=== PATIENT | male | born 1950 | race Caucasian/White ===

== ENCOUNTER 2018-01-21 03:33 | Inpatient (IN) | payer MEDICAID, OTHER ==
[~2018-01-21] VITALS: Ht 172.7 cm; Wt 85.7 kg
[2018-01-21 04:46] LABS: BASOPHILS % 1.1 % (0.0-2.0); EOSINOPHILS % 0.4 % (0.0-5.0); HEMOGLOBIN. 13.1 g/dL (14.0-18.0); LYMPHOCYTES % 9.2 % (20.0-50.0); MEAN CORPUSCULAR HEMOGLOBIN 27.7 pg (28.0-32.0); MEAN CORPUSCULAR VOLUME 84.2 fL (80.0-94.0); MEAN PLATELET VOLUME 8.7 fl (7.4-10.4); MONOCYTES % 4.6 % (2.0-8.0); NEUTROPHILS % 84.7 % (40.0-76.0); PLATELET 320 x1000/uL (130-400); RED BLOOD CELL COUNT 4.75 mill/uL (4.7-6.1); RED CELL DISTRIBUTION WIDTH 14.6 % (11.6-14.6)
[2018-01-21 04:49] LABS: PARTIAL THROMBOPLASTIN TIME 32.6 sec (23.4-31.0); PROTHROMBIN TIME 9.9 sec (9.1-11.1)
[2018-01-21 04:52] LABS: CHLORIDE 101 mEq/L (98-107)
[2018-01-21 04:59] LABS: BETA HYDROXYBUTYRATE 0.1 mMol/L (0.0-0.3)
[2018-01-21 05:00] LABS: CREATINE KINASE 252 IU/L (39-308)
[2018-01-21] MEDS ORDERED: LABETALOL HCL 20MG/4ML CARPUJECT IV ONE (05:30)
[2018-01-21] MEDS ORDERED: FUROSEMIDE 40MG/4ML VIAL IVP SCH (05:40)
[2018-01-21] MEDS ORDERED: ASPIRIN 325MG EC TABLET PO ONE (06:00)
[2018-01-21] MEDS ORDERED: VANCOMYCIN 1 G PREMIX 200 ML IV SCH ×2 (06:15→08:30)
[2018-01-21] MEDS ORDERED: PIPERACILLIN/TAZOBACTAM 3.375GM/50ML PREMIX IV ONE (06:15)
[2018-01-21] MEDS ORDERED: PIPERACILLIN/TAZ 3.375G PREMIX 50 ML IV SCH (06:16)
[2018-01-21] MEDS ORDERED: NA PHOS,M-B/NA PHOS,DI-BA ENEMA 118ML PR PRN (08:30)
[2018-01-21] MEDS ORDERED: ONDANSETRON HCL 4MG/2ML INJ IV PRN (08:30)
[2018-01-21] MEDS ORDERED: ZOLPIDEM TARTRATE 5MG TABLET PO PRN (08:30)
[2018-01-21] MEDS ORDERED: MAGNESIUM/ALUMINUM HYDROXIDE/SIMETHICONE 30ML UDC PO PRN (08:30)
[2018-01-21] MEDS ORDERED: DIPHENHYDRAMINE 50MG/ML VIAL IV PRN (08:30)
[2018-01-21] MEDS ORDERED: GUAIFENESIN 200MG/10ML SUGAR FREE UDC PO PRN (08:30)
[2018-01-21] MEDS ORDERED: LORAZEPAM 0.5MG TABLET PO PRN (08:30)
[2018-01-21] MEDS ORDERED: IPRATROPIUM/ALBUTEROL 0.5-3(2.5)MG/3ML NEB INH PRN (08:30)
[2018-01-21] MEDS ORDERED: DOCUSATE SODIUM 100MG CAPSULE PO PRN (08:30)
[2018-01-21] MEDS ORDERED: CLONIDINE 0.1MG TABLET PO PRN (08:30)
[2018-01-21] MEDS ORDERED: ACETAMINOPHEN 325MG TABLET PO PRN (08:30)
[2018-01-21] MEDS ORDERED: TRAMADOL 50MG TABLET PO PRN (08:30)
[2018-01-21] MEDS ORDERED: CLONIDINE 0.2MG TABLET PO PRN (08:45)
[2018-01-21] MEDS: MINOXIDIL 2.5MG TABLET PO SCH ×2 (09:00→20:28)
[2018-01-21] MEDS: METOPROLOL TARTRATE 25MG TABLET PO SCH ×2 (09:00→20:29)
[2018-01-21] MEDS: AMLODIPINE 10MG TABLET PO SCH (09:28)
[2018-01-21] MEDS: FUROSEMIDE 40MG/4ML VIAL IVP SCH ×2 (09:28→20:29)
[2018-01-21] MEDS ORDERED: DEXTROSE 50% WATER 50ML SYRINGE IV PRN (10:30)
[2018-01-21 11:30] VITALS: BP 137/78
[2018-01-21] MEDS ORDERED: ENOXAPARIN 40MG/0.4ML SYR SUBCUT SCH (11:30)
[2018-01-21 12:00] VITALS: BP 137/78
[2018-01-21] MEDS: ASPIRIN 325MG EC TABLET PO SCH (12:03)
[2018-01-21] MEDS: ASCORBIC ACID 500 MG TABLET PO SCH ×2 (12:03→20:29)
[2018-01-21] MEDS: FAMOTIDINE 20MG TABLET PO SCH (12:03)
[2018-01-21] MEDS: ZINC SULFATE 220 MG ( 50 ) CAPSULE PO SCH (12:04)
[2018-01-21] MEDS: BLOOD SUGAR DIAGNOSTIC STRIP TEST SCH ×3 (12:04→20:20)
[2018-01-21] MEDS: INSULIN LISPRO 100 UNITS/ML SUBCUT SCH ×3 (12:15→20:31)
[2018-01-21] MEDS ORDERED: INSULIN GLARGINE UD 100 UNITS/ML SYR SUBCUT SCH (13:00)
[2018-01-21] MEDS ORDERED: VANCOMYCIN 750 MG PREMIX 150 ML IV NR (13:30)
[2018-01-21] MEDS: HYDRALAZINE HCL 50MG TABLET PO SCH ×2 (14:51→22:33)
[2018-01-21 15:38] LABS: *AMPHETAMINES SCREEN URINE NEGATIVE (NEGATIVE); *BARBITURATES SCREEN URINE NEGATIVE (NEGATIVE); *BENZODIAZEPINES SCREEN URINE NEGATIVE (NEGATIVE); *COCAINE SCREEN URINE NEGATIVE (NEGATIVE)
[2018-01-21 15:39] LABS: CANNABINOID URINE SCREEN NEGATIVE (NEGATIVE); OPIATES URINE SCREEN NEGATIVE (NEGATIVE); PHENCYCLIDINE URINE SCREEN NEGATIVE (NEGATIVE)
[2018-01-21 15:43] LABS: METHADONE URINE SCREEN NEGATIVE (NEGATIVE)
[2018-01-21 16:00] VITALS: BP 140/66
[2018-01-21] MEDS: PIPERACILLIN/TAZ 2.25G PREMIX 50 ML IV SCH ×2 (16:23→20:27)
[2018-01-21 16:55] LABS: CREATINE KINASE MB FRACTION 8.4 ng/mL (0.5-3.6)
[2018-01-21 20:00] VITALS: BP 128/60
[2018-01-21] MEDS ORDERED: ATORVASTATIN CALCIUM 40MG TABLET PO SCH (21:00)
[2018-01-22] VITALS: BP 104/43
[2018-01-22 01:03] LABS: CREATINE KINASE MB FRACTION 8.6 ng/mL (0.5-3.6)
[2018-01-22] MEDS: PIPERACILLIN/TAZ 2.25G PREMIX 50 ML IV SCH ×2 (03:12→08:39)
[2018-01-22 04:00] VITALS: BP 144/55
[2018-01-22] MEDS: INSULIN LISPRO 100 UNITS/ML SUBCUT SCH ×2 (06:20→12:31)
[2018-01-22] MEDS: BLOOD SUGAR DIAGNOSTIC STRIP TEST SCH ×2 (06:20→11:18)
[2018-01-22] MEDS: HYDRALAZINE HCL 50MG TABLET PO SCH (06:25)
[2018-01-22 08:00] VITALS: BP 109/60
[2018-01-22] MEDS: ASPIRIN 325MG EC TABLET PO SCH (08:27)
[2018-01-22] MEDS: AMLODIPINE 10MG TABLET PO SCH (08:28)
[2018-01-22] MEDS: ASCORBIC ACID 500 MG TABLET PO SCH (08:28)
[2018-01-22] MEDS: ZINC SULFATE 220 MG ( 50 ) CAPSULE PO SCH (08:28)
[2018-01-22] MEDS: MINOXIDIL 2.5MG TABLET PO SCH (08:29)
[2018-01-22] MEDS: FAMOTIDINE 20MG TABLET PO SCH (08:29)
[2018-01-22] MEDS: METOPROLOL TARTRATE 25MG TABLET PO SCH (08:29)
[2018-01-22] MEDS: FUROSEMIDE 40MG/4ML VIAL IVP SCH (08:30)
[2018-01-22] MEDS ORDERED: ENOXAPARIN 30MG/0.3ML SYR SUBCUT SCH (09:00)
[2018-01-22] MEDS ORDERED: INSULIN GLARGINE UD 100 UNITS/ML SYR SUBCUT SCH (11:30)
[2018-01-22 12:00] VITALS: BP 119/46
[2018-01-22 13:13] VITALS: BP 119/50
== END 2018-01-22 14:00 | disposition home or self-care (01) | DRG 469 ==
LOC: ER 03:33 → EDBEDREQTM 05:29 → EDBEDREQ 05:29 → 8WST 05:36 → ENRESERV 07:20 → CANRESERV 07:20 → ENRESERV 07:36
PROVIDERS: ADMIT Internal Medicine; ATTEND Internal Medicine
DX: N17.0 Acute kidney failure with tubular necrosis (principal); J96.00 Acute respiratory failure, unspecified whether with hypoxia or hypercapnia; E43 Unspecified severe protein-calorie malnutrition; I50.33 Acute on chronic diastolic (congestive) heart failure; E11.65 Type 2 diabetes mellitus with hyperglycemia; E83.51 Hypocalcemia; I11.0 Hypertensive heart disease with heart failure; L97.909 Non-pressure chronic ulcer of unspecified part of unspecified lower leg with unspecified severity; Z68.28 Body mass index [BMI] 28.0-28.9, adult; Z59.0 Homelessness; Z79.899 Other long term (current) drug therapy
CPT/HCPCS: 36415; 71045; 76770; 80053; 80061; 80305; 82010; 82375; 82550; 82553; 82962; 83036; 83605; 83880; 84484; 85025; 85610; 85730; 87040; 87086; 93005; 93306; 93970; 96365; 96368; 96375; 99285; J1650; J1815; J1940; J2405; J2543; J3370; J3490; J7050

== ENCOUNTER 2018-04-19 01:17 | Inpatient (IN) | payer MEDICAID ==
[~2018-04-19] VITALS: Ht 175.3 cm; Wt 71.7 kg
[2018-04-19] VITALS (65 sets, daily range): BP systolic 60–169; BP diastolic 26–78
[2018-04-19] MEDS ORDERED: ONDANSETRON HCL 4MG/2ML INJ IV STA (01:27)
[2018-04-19] MEDS ORDERED: SODIUM CHLORIDE 0.9% 1,000 ML IV ONE ×2 (01:27→02:15)
[2018-04-19 02:04] LABS: HEMATOCRIT. 36.5 % (42.0-52.0); HEMOGLOBIN. 10.1 g/dL (14.0-18.0); MEAN CORPUSCULAR HEMOGLOBIN 26.8 pg (28.0-32.0); MEAN CORPUSCULAR VOLUME 96.4 fL (80.0-94.0); MEAN PLATELET VOLUME 8.1 fl (7.4-10.4); PLATELET 710 x1000/uL (130-400); RED BLOOD CELL COUNT 3.79 mill/uL (4.7-6.1); RED CELL DISTRIBUTION WIDTH 21.1 % (11.6-14.6)
[2018-04-19 02:08] LABS: CHLORIDE 93 mEq/L (98-107)
[2018-04-19] MEDS ORDERED: DEXTROSE 50% WATER 50ML SYRINGE IV SCH (02:15)
[2018-04-19] MEDS ORDERED: SODIUM POLYSTYRENE SULFONATE 15 G/60 ML BOT PO SCH (02:15)
[2018-04-19] MEDS ORDERED: INSULIN REGULAR (HUMULIN R) 300UNITS/3ML IV SCH (02:15)
[2018-04-19] MEDS ORDERED: ATROPINE SULFATE 1MG/10ML SYR IV ONE ×2 (02:15→02:30)
[2018-04-19] MEDS ORDERED: CALCIUM GLUCONATE 100MG/ML 10ML VIAL IV ONE (02:15)
[2018-04-19 02:19] LABS: INR 1.2; PROTHROMBIN TIME 11.8 sec (9.1-11.1)
[2018-04-19] MEDS ORDERED: ALBUTEROL (0.083%) 2.5MG/3ML NEB HHN SCH (02:30)
[2018-04-19] MEDS ORDERED: CALCIUM GLUCONATE 1,000 MG in SODIUM CHLORIDE 0.9% 50 ML IV SCH (02:30)
[2018-04-19 02:36] LABS: PLATELET ESTIMATE INCREASED
[2018-04-19] MEDS ORDERED: SODIUM BICARBONATE 150 MEQ in DEXTROSE 5% WATER 1,000 ML IV STA (03:14)
[2018-04-19] MEDS ORDERED: DEXT 5%/0.9% NACL 1,000 ML IV ONE (03:15)
[2018-04-19] MEDS ORDERED: NOREPINEPHRINE 4MG/250ML PMX 250 ML IV ONE ×2 (03:15→06:00)
[2018-04-19] MEDS ORDERED: SODIUM BICARBONATE 8.4% 1 MEQ/ML 50ML SYR IV SCH (03:21)
[2018-04-19] MEDS ORDERED: VANCOMYCIN 1 G PREMIX 200 ML IV SCH (03:22)
[2018-04-19] MEDS ORDERED: PIPERACILLIN/TAZOBACTAM 3.375GM/50ML PREMIX IV SCH (03:22)
[2018-04-19] MEDS ORDERED: INSULIN REGULAR (DRIP) 100 UNITS in SODIUM CHLORIDE 0.9% 99 ML IV SCH ×2 (04:00→10:00)
[2018-04-19] MEDS ORDERED: NOREPINEPHRINE 4MG/250ML PMX 250 ML IV SCH (04:00)
[2018-04-19 04:18] LABS: BG CARBOXYHEMOGLOBIN 0.3 % (0.5-1.5); BG DEOXYHEMOGLOBIN 2.3 % (0.0-5.0); BG FRACTION INSPIRED OXYGEN 32; BG HCO3 ACT 3.7 mmol/L (22.0-26.0); BG METHEMOGLOBIN 0.3 % (0.0-1.5); BG OXYGEN SATURATION 97.7 % (92.0-98.5); BG OXYHEMOGLOBIN 97.1 % (94.0-97.0); BG PCO2 18.3 mmHg (35.0-45.0); BG PH 6.927 (7.350-7.450); BG PO2 164.2 mmHg (75.0-100.0); BG SAMPLE SITE RIGHT RADIAL; BG TOTAL HEMOGLOBIN 9.4 g/dL (12.0-18.0); BG VENT MODE NASAL CANNULA
[2018-04-19 04:30] LABS: PHOSPHORUS 8.7 mg/dL (2.5-4.9)
[2018-04-19 07:03] LABS: PHOSPHORUS 8.1 mg/dL (2.5-4.9)
[2018-04-19] MEDS ORDERED: SODIUM BICARBONATE 8.4% 1 MEQ/ML 50ML SYR IV ONE (07:15)
[2018-04-19 07:34] LABS: BG BASE EXCESS -21.6 mmol/L (-2.0-2.0); BG CARBOXYHEMOGLOBIN 0.3 % (0.5-1.5); BG FRACTION INSPIRED OXYGEN 21; BG HCO3 ACT 6.1 mmol/L (22.0-26.0); BG METHEMOGLOBIN 1.1 % (0.0-1.5); BG OXYGEN SATURATION 94.9 % (92.0-98.5); BG OXYHEMOGLOBIN 93.6 % (94.0-97.0); BG PCO2 19.9 mmHg (35.0-45.0); BG PH 7.107 (7.350-7.450); BG PO2 99.5 mmHg (75.0-100.0); BG SAMPLE SITE RIGHT RADIAL; BG TOTAL HEMOGLOBIN 10.9 g/dL (12.0-18.0); BG VENT MODE ROOM AIR
[2018-04-19] MEDS ORDERED: METRONIDAZOLE 500 MG PREMIX 100 ML IV SCH (08:45)
[2018-04-19] MEDS ORDERED: ONDANSETRON HCL 4MG/2ML INJ IV PRN (08:45)
[2018-04-19] MEDS ORDERED: CEFEPIME 1,000 MG in DEXTROSE 5% WATER 50 ML IV SCH (08:45)
[2018-04-19] MEDS ORDERED: CALC667T5 PO (08:49)
[2018-04-19] MEDS ORDERED: METF-416 PO (08:49)
[2018-04-19] MEDS ORDERED: AMIT1TAB PO (08:49)
[2018-04-19] MEDS ORDERED: FERR325T6 PO (08:49)
[2018-04-19] MEDS ORDERED: HYDR100T26 PO (08:49)
[2018-04-19] MEDS ORDERED: METO-539 PO (08:49)
[2018-04-19] MEDS ORDERED: ZINC220T PO (08:49)
[2018-04-19] MEDS ORDERED: FURO80TA87 PO (08:49)
[2018-04-19] MEDS ORDERED: LINA5TAB PO (08:49)
[2018-04-19] MEDS ORDERED: BENA40TA9 PO (08:49)
[2018-04-19] MEDS ORDERED: ASPI-1159 PO (08:49)
[2018-04-19] MEDS ORDERED: DOCU-138 PO (08:49)
[2018-04-19] MEDS ORDERED: PHENYLEPHRINE 40 MG in DEXT 5% WATER 496 ML IV PRN (09:45)
[2018-04-19] MEDS ORDERED: INSULIN REGULAR (DRIP) 100 UNITS in SODIUM CHLORIDE 0.9% 99 ML IV PRN (09:45)
[2018-04-19] MEDS ORDERED: DEXTROSE 50% WATER 50ML SYRINGE IV PRN ×2 (10:00)
[2018-04-19] MEDS: BLOOD SUGAR DIAGNOSTIC STRIP TEST SCH ×14 (10:00→23:00)
[2018-04-19] MEDS: METRONIDAZOLE 500 MG PREMIX 100 ML IV SCH ×2 (10:00→20:25)
[2018-04-19] MEDS: CEFEPIME 1,000 MG in DEXTROSE 5% WATER 50 ML IV SCH (10:00)
[2018-04-19] MEDS: MIDODRINE HCL 5MG TABLET PO SCH ×3 (10:00→16:01)
[2018-04-19] MEDS: NOREPINEPHRINE 16 MG in DEXT 5% WATER 484 ML IV PRN ×2 (10:21→20:50)
[2018-04-19] MEDS ORDERED: HALOPERIDOL LACTATE 5MG/ML VIAL IM PRN (11:30)
[2018-04-19] MEDS ORDERED: DEXT 5%/0.45% NACL 1000ML 1,000 ML IV SCH (11:30)
[2018-04-19 13:42] LABS: PHOSPHORUS 4.4 mg/dL (2.5-4.9)
[2018-04-19 16:39] LABS: PHOSPHORUS 3.2 mg/dL (2.5-4.9)
[2018-04-19] MEDS ORDERED: DEXT 10% WATER 1,000 ML IV SCH (17:45)
[2018-04-19] MEDS: HALOPERIDOL LACTATE 5MG/ML VIAL IM PRN (23:29)
[2018-04-20] VITALS (33 sets, daily range): BP systolic 77–134; BP diastolic 38–64
[2018-04-20] MEDS: BLOOD SUGAR DIAGNOSTIC STRIP TEST SCH ×11 (00:32→21:00)
[2018-04-20 05:37] LABS: HEMOGLOBIN. 10.1 g/dL (14.0-18.0); MEAN CORPUSCULAR HEMOGLOBIN 26.6 pg (28.0-32.0); MEAN CORPUSCULAR VOLUME 84.3 fL (80.0-94.0); MEAN PLATELET VOLUME 7.3 fl (7.4-10.4); PLATELET 407 x1000/uL (130-400)
[2018-04-20 06:07] LABS: PHOSPHORUS 3.7 mg/dL (2.5-4.9)
[2018-04-20 06:17] LABS: HEPATITIS B SURFACE ANTIGEN NEGATIVE
[2018-04-20] MEDS ORDERED: POTASSIUM CHLORIDE 20MEQ TABLET SR PO NR ×2 (07:30→12:30)
[2018-04-20] MEDS: METRONIDAZOLE 500 MG PREMIX 100 ML IV SCH ×2 (08:15→21:05)
[2018-04-20] MEDS: MIDODRINE HCL 5MG TABLET PO SCH ×3 (08:15→18:10)
[2018-04-20] MEDS: CEFEPIME 1,000 MG in DEXTROSE 5% WATER 50 ML IV SCH (08:15)
[2018-04-20] MEDS ORDERED: DEXTROSE 50% WATER 50ML SYRINGE IV PRN (09:45)
[2018-04-20] MEDS: HALOPERIDOL LACTATE 5MG/ML VIAL IM PRN (09:55)
[2018-04-20] MEDS ORDERED: BLOOD SUGAR DIAGNOSTIC STRIP TEST SCH (10:00)
[2018-04-20] MEDS: INSULIN LISPRO 100 UNITS/ML SUBCUT SCH ×3 (12:13→21:00)
[2018-04-20] MEDS: ACETAMINOPHEN 325MG TABLET PO PRN (12:39)
[2018-04-20 13:43] LABS: PLATELET ESTIMATE NORMAL
[2018-04-21] VITALS: BP 116/59
[2018-04-21 04:00] VITALS: BP 147/55
[2018-04-21] MEDS: HALOPERIDOL LACTATE 5MG/ML VIAL IM PRN (04:00)
[2018-04-21] MEDS: BLOOD SUGAR DIAGNOSTIC STRIP TEST SCH ×4 (07:12→21:00)
[2018-04-21] MEDS: INSULIN LISPRO 100 UNITS/ML SUBCUT SCH ×4 (07:50→21:00)
[2018-04-21 08:55] LABS: BASOPHILS % 0.2 % (0.0-2.0); EOSINOPHILS % 0.2 % (0.0-5.0); HEMATOCRIT. 29.2 % (42.0-52.0); HEMOGLOBIN. 9.3 g/dL (14.0-18.0); LYMPHOCYTES % 7.9 % (20.0-50.0); MEAN CORPUSCULAR HEMOGLOBIN 26.9 pg (28.0-32.0); MEAN CORPUSCULAR VOLUME 83.9 fL (80.0-94.0); MEAN PLATELET VOLUME 7.2 fl (7.4-10.4); MONOCYTES % 8.9 % (2.0-8.0); NEUTROPHILS % 82.8 % (40.0-76.0); PLATELET 351 x1000/uL (130-400); RED BLOOD CELL COUNT 3.47 mill/uL (4.7-6.1); RED CELL DISTRIBUTION WIDTH 19.6 % (11.6-14.6)
[2018-04-21] MEDS: CEFEPIME 1,000 MG in DEXTROSE 5% WATER 50 ML IV SCH (09:38)
[2018-04-21] MEDS: METRONIDAZOLE 500 MG PREMIX 100 ML IV SCH ×2 (09:38→21:02)
[2018-04-21] MEDS: ACETAMINOPHEN 325MG TABLET PO PRN (09:39)
[2018-04-21] MEDS: MIDODRINE HCL 5MG TABLET PO SCH ×3 (09:39→17:00)
[2018-04-21 12:10] VITALS: BP 153/54
[2018-04-21 16:00] VITALS: BP 145/58
[2018-04-21 20:00] VITALS: BP 170/64
[2018-04-22] VITALS: BP 174/71
[2018-04-22] MEDS: ACETAMINOPHEN 325MG TABLET PO PRN ×3 (03:23→17:36)
[2018-04-22 04:00] VITALS: BP 115/61
[2018-04-22] MEDS: BLOOD SUGAR DIAGNOSTIC STRIP TEST SCH ×4 (07:20→20:56)
[2018-04-22] MEDS: INSULIN LISPRO 100 UNITS/ML SUBCUT SCH ×4 (07:34→20:56)
[2018-04-22] MEDS: CEFEPIME 1,000 MG in DEXTROSE 5% WATER 50 ML IV SCH (08:49)
[2018-04-22 09:00] VITALS: BP 174/71
[2018-04-22] MEDS: MIDODRINE HCL 5MG TABLET PO SCH ×3 (09:00→17:43)
[2018-04-22] MEDS: METRONIDAZOLE 500 MG PREMIX 100 ML IV SCH (10:09)
[2018-04-22 12:38] VITALS: BP 178/71
[2018-04-22 16:25] VITALS: BP 131/71
[2018-04-22 20:00] VITALS: BP 169/72
[2018-04-22] MEDS: METRONIDAZOLE 500MG TABLET PO SCH (20:56)
[2018-04-23] VITALS: BP 188/75
[2018-04-23 04:00] VITALS: BP 175/64
[2018-04-23] MEDS ORDERED: BENAZEPRIL 10MG TABLET PO SCH (04:00)
[2018-04-23] MEDS: BENAZEPRIL 10MG TABLET PO SCH ×2 (04:11→20:50)
[2018-04-23] MEDS: IRON SUCROSE COMPLEX 100 MG/5 ML ML IV SCH (04:26)
[2018-04-23] MEDS ORDERED: EPOETIN ALFA 10000UNITS/ML VIAL SUBCUT NR (06:00)
[2018-04-23] MEDS: BLOOD SUGAR DIAGNOSTIC STRIP TEST SCH ×4 (06:34→20:50)
[2018-04-23] MEDS: INSULIN LISPRO 100 UNITS/ML SUBCUT SCH ×4 (07:50→21:00)
[2018-04-23 08:00] VITALS: BP 148/60
[2018-04-23] MEDS: MIDODRINE HCL 5MG TABLET PO SCH ×3 (09:00→17:00)
[2018-04-23] MEDS: CEFEPIME 1,000 MG in DEXTROSE 5% WATER 50 ML IV SCH (09:12)
[2018-04-23] MEDS: CARVEDILOL 3.125 MG TABLET PO SCH ×2 (09:47→20:49)
[2018-04-23] MEDS: METRONIDAZOLE 500MG TABLET PO SCH ×2 (09:49→20:50)
[2018-04-23 12:00] VITALS: BP 196/74
[2018-04-23] MEDS: HYDRALAZINE HCL 50MG TABLET PO SCH ×2 (13:54→20:50)
[2018-04-23 16:00] VITALS: BP 168/70
[2018-04-23 20:04] VITALS: BP 166/67
[2018-04-24 00:57] VITALS: BP 170/60
[2018-04-24 04:22] VITALS: BP 174/68
[2018-04-24] MEDS: HYDRALAZINE HCL 50MG TABLET PO SCH ×3 (05:22→21:33)
[2018-04-24] MEDS: IRON SUCROSE COMPLEX 100 MG/5 ML ML IV SCH (05:22)
[2018-04-24] MEDS: BLOOD SUGAR DIAGNOSTIC STRIP TEST SCH ×4 (07:20→21:45)
[2018-04-24] MEDS: INSULIN LISPRO 100 UNITS/ML SUBCUT SCH ×4 (07:50→21:00)
[2018-04-24] MEDS: BENAZEPRIL 10MG TABLET PO SCH ×2 (09:00→21:33)
[2018-04-24] MEDS: MIDODRINE HCL 5MG TABLET PO SCH ×2 (09:00→13:00)
[2018-04-24] MEDS: CARVEDILOL 3.125 MG TABLET PO SCH ×2 (09:00→21:33)
[2018-04-24] MEDS: METRONIDAZOLE 500MG TABLET PO SCH (11:15)
[2018-04-24] MEDS: CEFEPIME 1,000 MG in DEXTROSE 5% WATER 50 ML IV SCH (11:20)
[2018-04-24 12:00] VITALS: BP 110/70
[2018-04-24 17:26] LABS: BASOPHILS % 0.5 % (0.0-2.0); EOSINOPHILS % 0.6 % (0.0-5.0); HEMATOCRIT. 32.8 % (42.0-52.0); HEMOGLOBIN. 10.5 g/dL (14.0-18.0); LYMPHOCYTES % 7.9 % (20.0-50.0); MEAN CORPUSCULAR HEMOGLOBIN 26.7 pg (28.0-32.0); MEAN CORPUSCULAR VOLUME 83.7 fL (80.0-94.0); MEAN PLATELET VOLUME 7.9 fl (7.4-10.4); MONOCYTES % 7.3 % (2.0-8.0); NEUTROPHILS % 83.7 % (40.0-76.0); PLATELET 356 x1000/uL (130-400); RED BLOOD CELL COUNT 3.92 mill/uL (4.7-6.1); RED CELL DISTRIBUTION WIDTH 19.2 % (11.6-14.6)
[2018-04-24 20:23] VITALS: BP 184/70
[2018-04-25] VITALS: BP 179/74
[2018-04-25 04:00] VITALS: BP 193/71
[2018-04-25] MEDS: BLOOD SUGAR DIAGNOSTIC STRIP TEST SCH ×4 (06:56→21:18)
[2018-04-25] MEDS: HYDRALAZINE HCL 50MG TABLET PO SCH ×3 (06:56→21:18)
[2018-04-25] MEDS: IRON SUCROSE COMPLEX 100 MG/5 ML ML IV SCH (06:56)
[2018-04-25] MEDS: INSULIN LISPRO 100 UNITS/ML SUBCUT SCH ×4 (07:50→21:20)
[2018-04-25 08:00] VITALS: BP 185/72
[2018-04-25] MEDS: BENAZEPRIL 10MG TABLET PO SCH ×2 (09:00→21:17)
[2018-04-25] MEDS: CARVEDILOL 3.125 MG TABLET PO SCH ×2 (09:00→17:51)
[2018-04-25 10:04] LABS: BASOPHILS % 0.3 % (0.0-2.0); HEMATOCRIT. 32.7 % (42.0-52.0); HEMOGLOBIN. 10.4 g/dL (14.0-18.0); LYMPHOCYTES % 9.4 % (20.0-50.0); MEAN CORPUSCULAR HEMOGLOBIN 26.6 pg (28.0-32.0); MEAN CORPUSCULAR VOLUME 83.6 fL (80.0-94.0); MEAN PLATELET VOLUME 7.3 fl (7.4-10.4); MONOCYTES % 8.5 % (2.0-8.0); NEUTROPHILS % 80.8 % (40.0-76.0); PLATELET 379 x1000/uL (130-400); RED BLOOD CELL COUNT 3.91 mill/uL (4.7-6.1); RED CELL DISTRIBUTION WIDTH 18.8 % (11.6-14.6)
[2018-04-25 12:00] VITALS: BP 168/49
[2018-04-25 16:00] VITALS: BP 166/65
[2018-04-25 20:00] VITALS: BP 145/61
[2018-04-26] VITALS (7 sets, daily range): BP systolic 103–195; BP diastolic 65–71
[2018-04-26] MEDS: IRON SUCROSE COMPLEX 100 MG/5 ML ML IV SCH (05:32)
[2018-04-26] MEDS: HYDRALAZINE HCL 50MG TABLET PO SCH ×2 (05:33→14:58)
[2018-04-26] MEDS: BLOOD SUGAR DIAGNOSTIC STRIP TEST SCH ×3 (06:29→21:33)
[2018-04-26] MEDS: INSULIN LISPRO 100 UNITS/ML SUBCUT SCH ×3 (07:50→21:34)
[2018-04-26] MEDS: BENAZEPRIL 10MG TABLET PO SCH ×2 (09:23→21:00)
[2018-04-26] MEDS: CARVEDILOL 3.125 MG TABLET PO SCH ×2 (09:24→21:00)
[2018-04-27] VITALS: BP 194/86
[2018-04-27] MEDS: HYDRALAZINE HCL 50MG TABLET PO SCH ×4 (00:29→22:35)
[2018-04-27 04:00] VITALS: BP 187/77
[2018-04-27] MEDS ORDERED: IRON SUCROSE COMPLEX 100 MG/5 ML ML IV SCH (06:00)
[2018-04-27] MEDS: IRON SUCROSE COMPLEX 100 MG/5 ML ML IV SCH (06:25)
[2018-04-27] MEDS: BLOOD SUGAR DIAGNOSTIC STRIP TEST SCH ×4 (06:26→21:13)
[2018-04-27] MEDS: INSULIN LISPRO 100 UNITS/ML SUBCUT SCH ×4 (07:50→20:37)
[2018-04-27] MEDS: CARVEDILOL 3.125 MG TABLET PO SCH ×2 (08:43→20:43)
[2018-04-27] MEDS: BENAZEPRIL 10MG TABLET PO SCH ×2 (08:44→20:43)
[2018-04-27 08:53] VITALS: BP 161/64
[2018-04-27 10:15] LABS: BASOPHILS % 0.3 % (0.0-2.0); EOSINOPHILS % 1.3 % (0.0-5.0); HEMATOCRIT. 33.8 % (42.0-52.0); HEMOGLOBIN. 10.5 g/dL (14.0-18.0); LYMPHOCYTES % 14.1 % (20.0-50.0); MEAN CORPUSCULAR HEMOGLOBIN 26.3 pg (28.0-32.0); MEAN CORPUSCULAR VOLUME 85.1 fL (80.0-94.0); MEAN PLATELET VOLUME 7.7 fl (7.4-10.4); MONOCYTES % 8.8 % (2.0-8.0); NEUTROPHILS % 75.5 % (40.0-76.0); PLATELET 468 x1000/uL (130-400); RED BLOOD CELL COUNT 3.97 mill/uL (4.7-6.1); RED CELL DISTRIBUTION WIDTH 19.1 % (11.6-14.6)
[2018-04-27 12:25] VITALS: BP 170/71
[2018-04-27 16:25] VITALS: BP 147/81
[2018-04-27 20:00] VITALS: BP 162/70
[2018-04-27] MEDS ORDERED: EPOETIN ALFA 4000UNITS/ML VIAL SUBCUT SCH (21:00)
[2018-04-28] VITALS: BP 119/60
[2018-04-28 04:00] VITALS: BP 159/66
[2018-04-28] MEDS: HYDRALAZINE HCL 50MG TABLET PO SCH ×3 (06:39→21:44)
[2018-04-28] MEDS: BLOOD SUGAR DIAGNOSTIC STRIP TEST SCH ×4 (07:20→20:48)
[2018-04-28] MEDS: INSULIN LISPRO 100 UNITS/ML SUBCUT SCH ×4 (07:50→21:29)
[2018-04-28 08:35] VITALS: BP 194/67
[2018-04-28] MEDS: CARVEDILOL 3.125 MG TABLET PO SCH ×2 (08:38→20:35)
[2018-04-28] MEDS: BENAZEPRIL 10MG TABLET PO SCH ×2 (08:38→20:35)
[2018-04-28 10:23] LABS: BASOPHILS % 0.6 % (0.0-2.0); EOSINOPHILS % 0.7 % (0.0-5.0); HEMATOCRIT. 33.5 % (42.0-52.0); HEMOGLOBIN. 10.7 g/dL (14.0-18.0); LYMPHOCYTES % 10.3 % (20.0-50.0); MEAN CORPUSCULAR HEMOGLOBIN 27.2 pg (28.0-32.0); MEAN CORPUSCULAR VOLUME 85.1 fL (80.0-94.0); MEAN PLATELET VOLUME 7.4 fl (7.4-10.4); MONOCYTES % 9.2 % (2.0-8.0); NEUTROPHILS % 79.2 % (40.0-76.0); PLATELET 416 x1000/uL (130-400); RED BLOOD CELL COUNT 3.94 mill/uL (4.7-6.1); RED CELL DISTRIBUTION WIDTH 19.3 % (11.6-14.6)
[2018-04-28 11:36] VITALS: BP 110/53
[2018-04-28 16:11] VITALS: BP 165/72
[2018-04-29] VITALS: BP 160/70
[2018-04-29 04:00] VITALS: BP 161/68
[2018-04-29] MEDS: HYDRALAZINE HCL 50MG TABLET PO SCH ×3 (06:02→23:12)
[2018-04-29] MEDS: BLOOD SUGAR DIAGNOSTIC STRIP TEST SCH ×4 (06:26→21:16)
[2018-04-29 08:02] VITALS: BP 171/67
[2018-04-29] MEDS: CARVEDILOL 3.125 MG TABLET PO SCH ×2 (09:00→21:54)
[2018-04-29] MEDS: BENAZEPRIL 10MG TABLET PO SCH ×2 (09:00→21:54)
[2018-04-29] MEDS ORDERED: INSULIN GLARGINE UD 100 UNITS/ML SYR SUBCUT SCH (10:00)
[2018-04-29] MEDS: INSULIN LISPRO 100 UNITS/ML SUBCUT SCH ×4 (10:04→21:00)
[2018-04-29 12:08] VITALS: BP 162/74
[2018-04-29] MEDS ORDERED: COR3 PO (14:45)
[2018-04-29] MEDS ORDERED: EPOE40007 SUBCUT (14:45)
[2018-04-29] MEDS ORDERED: INSLIS SUBCUT (14:45)
[2018-04-29] MEDS ORDERED: HYDR-4135 PO (14:45)
[2018-04-29] MEDS ORDERED: LOT10 PO (14:45)
[2018-04-29] MEDS ORDERED: LANTUSUD SUBCUT (14:45)
[2018-04-29 15:54] VITALS: BP 152/58
[2018-04-29 20:00] VITALS: BP 161/75
[2018-04-29] MEDS ORDERED: HEPARIN SODIUM 1,000 UNIT/1ML VIAL IV NR (20:34)
[2018-04-30 00:04] VITALS: BP 151/76
== END 2018-04-30 00:50 | DRG 720 ==
LOC: ER 01:17 → CVICU 04:39 → EDBEDREQ 04:42 → EDBEDREQSVC 04:42 → ENRESERV 07:17 → 6WST 04-20 16:19
PROVIDERS: ADMIT Internal Medicine; ATTEND Internal Medicine
PROC: 5A1D70Z Performance of Urinary Filtration, Intermittent, Less than 6 Hours Per Day (ICD-10-PCS; 2018-04-19)
PROC: 5A1D70Z Performance of Urinary Filtration, Intermittent, Less than 6 Hours Per Day (ICD-10-PCS; 2018-04-20)
PROC: 5A1D70Z Performance of Urinary Filtration, Intermittent, Less than 6 Hours Per Day (ICD-10-PCS; 2018-04-22)
PROC: 5A1D70Z Performance of Urinary Filtration, Intermittent, Less than 6 Hours Per Day (ICD-10-PCS; 2018-04-25)
PROC: 5A1D70Z Performance of Urinary Filtration, Intermittent, Less than 6 Hours Per Day (ICD-10-PCS; 2018-04-26)
PROC: 5A1D70Z Performance of Urinary Filtration, Intermittent, Less than 6 Hours Per Day (ICD-10-PCS; principal; 2018-04-28)
DX: A41.9 Sepsis, unspecified organism (principal); R65.21 Severe sepsis with septic shock; E43 Unspecified severe protein-calorie malnutrition; J69.0 Pneumonitis due to inhalation of food and vomit; G93.41 Metabolic encephalopathy; E11.10 Type 2 diabetes mellitus with ketoacidosis without coma; J90 Pleural effusion, not elsewhere classified; E87.2 Acidosis; E11.22 Type 2 diabetes mellitus with diabetic chronic kidney disease; N18.6 End stage renal disease; D63.8 Anemia in other chronic diseases classified elsewhere; E87.5 Hyperkalemia; I12.0 Hypertensive chronic kidney disease with stage 5 chronic kidney disease or end stage renal disease; E11.51 Type 2 diabetes mellitus with diabetic peripheral angiopathy without gangrene; E83.39 Other disorders of phosphorus metabolism; E87.6 Hypokalemia; E87.8 Other disorders of electrolyte and fluid balance, not elsewhere classified; Z99.2 Dependence on renal dialysis; Z79.899 Other long term (current) drug therapy; Z79.82 Long term (current) use of aspirin; Z68.23 Body mass index [BMI] 23.0-23.9, adult
CPT/HCPCS: 36415; 36600; 71045; 74176; 80048; 80329; 82010; 82140; 82270; 82375; 82805; 82962; 83605; 83735; 83880; 84100; 84145; 84484; 86803; 87340; 87493; 93005; 93970; 94640; 96361; 96365; 96366; 96375; 97110; 97162; 97530; 99291; A6261; J0461; J0610; J0692; J0885; J1630; J1644; J1815; J2405; J2543; J3370; J3490; J7030; J7040; J7042; J7050; J7060; J7070; J7611

== ENCOUNTER 2018-05-23 11:47 | Inpatient (IN) | payer MEDICAID ==
[~2018-05-23] VITALS: Ht 177.8 cm; Wt 64.9 kg
[~2018-05-23 11:47] MED LIST: AMIT1TAB PO; ASPI-1159 PO; CALC667T5 PO; COR3 PO; DOCU-138 PO; EPOE40007 SUBCUT; FERR325T6 PO; HYDR-4135 PO; INSLIS SUBCUT; LANTUSUD SUBCUT; LOT10 PO; ZINC220T PO
[2018-05-23 20:12] LABS: BASOPHILS % 1.1 % (0.0-2.0); EOSINOPHILS % 1.7 % (0.0-5.0); HEMATOCRIT. 36.3 % (42.0-52.0); HEMOGLOBIN. 11.5 g/dL (14.0-18.0); LYMPHOCYTES % 18.2 % (20.0-50.0); MEAN CORPUSCULAR HEMOGLOBIN 26.5 pg (28.0-32.0); MEAN CORPUSCULAR VOLUME 83.4 fL (80.0-94.0); MEAN PLATELET VOLUME 7.3 fl (7.4-10.4); MONOCYTES % 5.5 % (2.0-8.0); NEUTROPHILS % 73.5 % (40.0-76.0); PLATELET 410 x1000/uL (130-400); RED BLOOD CELL COUNT 4.35 mill/uL (4.7-6.1); RED CELL DISTRIBUTION WIDTH 17.5 % (11.6-14.6)
[2018-05-23 20:15] LABS: CHLORIDE 96 mEq/L (98-107)
[2018-05-23 21:54] LABS: CLARITY URINE CLEAR (CLEAR); COLOR URINE YELLOW (YELLOW); KETONES URINE NEGATIVE (NEGATIVE); LEUKOCYTE ESTERASE URINE NEGATIVE (NEGATIVE); NITRITE URINE NEGATIVE (NEGATIVE); OCCULT BLOOD URINE NEGATIVE (NEGATIVE); PH URINE 7.5 (4.5-8.0); PROTEIN URINE 4+ (NEGATIVE); SPECIFIC GRAVITY URINE 1.025 (1.005-1.030); UROBILINOGEN URINE 0.2 E.U./dL (0.2-1.0)
[2018-05-23] MEDS ORDERED: IPRATROPIUM/ALBUTEROL 0.5-3(2.5)MG/3ML NEB INH PRN (22:45)
[2018-05-23] MEDS ORDERED: DOCUSATE SODIUM 100MG CAPSULE PO PRN (22:45)
[2018-05-23] MEDS ORDERED: CLONIDINE 0.1MG TABLET PO PRN (22:45)
[2018-05-23] MEDS ORDERED: ACETAMINOPHEN 325MG TABLET PO PRN (22:45)
[2018-05-23] MEDS ORDERED: ONDANSETRON HCL 4MG/2ML INJ IV PRN (22:45)
[2018-05-23 23:05] LABS: *AMPHETAMINES SCREEN URINE NEGATIVE (NEGATIVE); *BARBITURATES SCREEN URINE NEGATIVE (NEGATIVE); *BENZODIAZEPINES SCREEN URINE NEGATIVE (NEGATIVE)
[2018-05-23 23:06] LABS: *COCAINE SCREEN URINE NEGATIVE (NEGATIVE); CANNABINOID URINE SCREEN NEGATIVE (NEGATIVE); METHADONE URINE SCREEN NEGATIVE (NEGATIVE); OPIATES URINE SCREEN NEGATIVE (NEGATIVE); PHENCYCLIDINE URINE SCREEN NEGATIVE (NEGATIVE)
[2018-05-24] VITALS (7 sets, daily range): BP systolic 108–187; BP diastolic 69–84
[2018-05-24 06:08] LABS: BASOPHILS % 2.2 % (0.0-2.0); EOSINOPHILS % 2.5 % (0.0-5.0); HEMATOCRIT. 35.6 % (42.0-52.0); HEMOGLOBIN. 11.5 g/dL (14.0-18.0); LYMPHOCYTES % 17.8 % (20.0-50.0); MEAN CORPUSCULAR VOLUME 83.4 fL (80.0-94.0); MEAN PLATELET VOLUME 7.1 fl (7.4-10.4); MONOCYTES % 6.9 % (2.0-8.0); NEUTROPHILS % 70.6 % (40.0-76.0); PLATELET 367 x1000/uL (130-400); RED BLOOD CELL COUNT 4.27 mill/uL (4.7-6.1)
[2018-05-24] MEDS ORDERED: BLOOD SUGAR DIAGNOSTIC STRIP TEST SCH (07:20)
[2018-05-24 07:40] LABS: CREATINE KINASE MB FRACTION 4.3 ng/mL (0.5-3.6)
[2018-05-24] MEDS ORDERED: INSULIN LISPRO 100 UNITS/ML SUBCUT SCH (07:50)
[2018-05-24] MEDS ORDERED: DEXTROSE 50% WATER 50ML SYRINGE IV PRN ×2 (08:00)
[2018-05-24] MEDS: HEPARIN 5000 UNITS/ML VIAL SUBCUT SCH ×2 (10:58→20:16)
[2018-05-24] MEDS: INSULIN LISPRO 100 UNITS/ML SUBCUT SCH ×3 (12:16→20:24)
[2018-05-24] MEDS: BLOOD SUGAR DIAGNOSTIC STRIP TEST SCH ×3 (12:16→20:20)
[2018-05-24] MEDS: ASPIRIN 81MG TABLET PO SCH (13:02)
[2018-05-24] MEDS: HYDRALAZINE HCL 50MG TABLET PO SCH ×2 (13:03→22:07)
[2018-05-24 15:33] LABS: T4 FREE 1.18 ng/dL (0.76-1.46)
[2018-05-24] MEDS: BENAZEPRIL 10MG TABLET PO SCH (20:16)
[2018-05-24] MEDS: CARVEDILOL 3.125 MG TABLET PO SCH (20:16)
[2018-05-25] VITALS: BP 172/67
[2018-05-25 04:00] VITALS: BP 180/72
[2018-05-25] MEDS: HYDRALAZINE HCL 50MG TABLET PO SCH ×3 (05:07→22:06)
[2018-05-25] MEDS: BLOOD SUGAR DIAGNOSTIC STRIP TEST SCH ×4 (06:47→21:00)
[2018-05-25 08:00] VITALS: BP 151/58
[2018-05-25] MEDS: ASPIRIN 81MG TABLET PO SCH (08:24)
[2018-05-25] MEDS: BENAZEPRIL 10MG TABLET PO SCH ×2 (08:25→22:06)
[2018-05-25] MEDS: INSULIN LISPRO 100 UNITS/ML SUBCUT SCH ×4 (08:28→21:00)
[2018-05-25] MEDS: CARVEDILOL 3.125 MG TABLET PO SCH ×2 (08:40→22:05)
[2018-05-25] MEDS ORDERED: INSULIN GLARGINE UD 100 UNITS/ML SYR SUBCUT SCH (10:00)
[2018-05-25] MEDS: HYDROCODONE/ACETAMINOPHEN 5/325MG TABLET PO PRN (10:10)
[2018-05-25] MEDS: HEPARIN 5000 UNITS/ML VIAL SUBCUT SCH ×2 (10:10→22:07)
[2018-05-25] MEDS ORDERED: HEPARIN SODIUM 1,000 UNIT/1ML VIAL IV NR (18:32)
[2018-05-25 18:46] LABS: BASOPHILS % 1.4 % (0.0-2.0); EOSINOPHILS % 2.8 % (0.0-5.0); HEMATOCRIT. 30.4 % (42.0-52.0); HEMOGLOBIN. 9.8 g/dL (14.0-18.0); LYMPHOCYTES % 21.4 % (20.0-50.0); MEAN CORPUSCULAR HEMOGLOBIN 26.9 pg (28.0-32.0); MEAN CORPUSCULAR VOLUME 83.4 fL (80.0-94.0); MEAN PLATELET VOLUME 7.1 fl (7.4-10.4); MONOCYTES % 8.8 % (2.0-8.0); NEUTROPHILS % 65.6 % (40.0-76.0); PLATELET 334 x1000/uL (130-400); RED BLOOD CELL COUNT 3.64 mill/uL (4.7-6.1); RED CELL DISTRIBUTION WIDTH 17.8 % (11.6-14.6)
[2018-05-25 19:05] LABS: PHOSPHORUS 3.2 mg/dL (2.5-4.9)
[2018-05-25 20:00] VITALS: BP 159/81
[2018-05-25] MEDS ORDERED: EPOETIN ALFA 4000UNITS/ML VIAL SUBCUT SCH (21:00)
[2018-05-25] MEDS: IRON SUCROSE COMPLEX 100 MG/5 ML ML IV SCH (22:26)
[2018-05-26] VITALS (7 sets, daily range): BP systolic 109–171; BP diastolic 64–74
[2018-05-26] MEDS: HYDROCODONE/ACETAMINOPHEN 5/325MG TABLET PO PRN (00:20)
[2018-05-26] MEDS: HYDRALAZINE HCL 50MG TABLET PO SCH ×3 (05:48→22:19)
[2018-05-26] MEDS: BLOOD SUGAR DIAGNOSTIC STRIP TEST SCH ×4 (07:20→21:00)
[2018-05-26] MEDS: INSULIN LISPRO 100 UNITS/ML SUBCUT SCH ×4 (07:50→22:47)
[2018-05-26] MEDS: ASPIRIN 81MG TABLET PO SCH (09:33)
[2018-05-26] MEDS: BENAZEPRIL 10MG TABLET PO SCH ×2 (09:33→22:00)
[2018-05-26] MEDS: HEPARIN 5000 UNITS/ML VIAL SUBCUT SCH ×2 (09:34→21:59)
[2018-05-26] MEDS: IRON SUCROSE COMPLEX 100 MG/5 ML ML IV SCH (09:38)
[2018-05-26] MEDS: CARVEDILOL 3.125 MG TABLET PO SCH ×2 (09:38→22:00)
[2018-05-26] MEDS ORDERED: INSULIN GLARGINE UD 100 UNITS/ML SYR SUBCUT SCH (10:00)
[2018-05-26] MEDS ORDERED: LANTUSUD SUBCUT (14:02)
== END 2018-05-26 23:30 | DRG 199 ==
LOC: ER 11:47 → 6WST 22:20 → ENRESERV 05-24 03:29
PROVIDERS: ADMIT Internal Medicine; ATTEND Internal Medicine
DX: I16.0 Hypertensive urgency (principal); E46 Unspecified protein-calorie malnutrition; E11.22 Type 2 diabetes mellitus with diabetic chronic kidney disease; E11.621 Type 2 diabetes mellitus with foot ulcer; I13.2 Hypertensive heart and chronic kidney disease with heart failure and with stage 5 chronic kidney disease, or end stage renal disease; N18.6 End stage renal disease; L97.509 Non-pressure chronic ulcer of other part of unspecified foot with unspecified severity; R07.89 Other chest pain; I50.9 Heart failure, unspecified; G40.909 Epilepsy, unspecified, not intractable, without status epilepticus; E78.5 Hyperlipidemia, unspecified; D63.8 Anemia in other chronic diseases classified elsewhere; D53.9 Nutritional anemia, unspecified; Z99.2 Dependence on renal dialysis; K52.9 Noninfective gastroenteritis and colitis, unspecified; Z79.4 Long term (current) use of insulin; Z79.82 Long term (current) use of aspirin; Z91.14 Patient's other noncompliance with medication regimen; Z79.84 Long term (current) use of oral hypoglycemic drugs; Z68.20 Body mass index [BMI] 20.0-20.9, adult; M94.0 Chondrocostal junction syndrome [Tietze]
CPT/HCPCS: 36415; 71045; 80048; 80061; 80305; 82550; 82553; 82962; 83735; 84100; 84439; 84443; 84481; 84484; 93005; 93970; 99285; J1644; J1815; A4315